=== PATIENT | female | born 1975 | race Caucasian/White ===

== ENCOUNTER → 2016-10-02 | Outpatient (CLI) | payer BC ==
--- NOTE | 2016-10-03 07:39 | CONS ---
DATE OF CONSULTATION: 10/02/2016 CONSULTATION/NEW PATIENT EVALUATION 41-year-old lady who has been evaluated in the [facility] for problem is sleeping at night and significant sleepiness during the day. [place] Sleepiness Scale is in extremely high range at 19. There was an episode of when she fall asleep during conversation. HISTORY OF PRESENT ILLNESS/SLEEP-WAKE EVALUATION: Her usual sleep schedule from around 11:00 p.m. to midnight time until 6:00 a.m. and on weekends from 11 to 12 midnight until 6:00 or 7:00 a.m. She does have problems with falling sleep. She may wake up from sleep with difficulties to initiate sleep again. She wakes up with dry mouth. She denied any history of snoring, but she has episodes of heavy breathing when she breathes through her mouth during the sleep. In the morning she wakes up tired, falling asleep during the day, worries about her sleep, has problems with memory, concentration, irritability, depression. [place] Sleepiness Scale is already mentioned above 19. Positive history of one episode of possible hypnagogic hallucinations. No history of cataplexy or sleep paralysis. PAST MEDICAL HISTORY: Positive for recent diagnosis of Parkinson's disease. MEDICATIONS: Sinemet 25 and 100 mg at 5 times a day, Requip 2 mg 4 times a day. Without medications she has significant tremor according to the patient. PAST SURGICAL HISTORY: None. SOCIAL HISTORY: Negative for smoking. Alcohol consumption occasional. REVIEW OF SYSTEMS: Some awakenings from sleepiness during the day, significant tremor without medications. No fevers. No double vision. No recent chest pain. No shortness of breath. No abdominal pain. No bleeding episodes. No blood in urine. No seizure episodes. FAMILY HISTORY: Heart problems, hyperlipidemia, sinus headache, cancer, acid reflux. PHYSICAL EXAMINATION: GENERAL: A 41-year-old lady without distress. VITAL SIGNS: BP 123/70, HR 84, RR 16. Height 5 feet 5 inches. Weight 165. BMI 27.4. Neck 13-1/2 inches in circumference. Temp is 97.6. Oxygen saturation at room air 100%. HEENT: PERRLA, EOMI. Evaluation of oropharynx showed extremely low position of soft palate. Slight restriction of nasal breathing. Retrognathia 2 to 3 mm. NECK: Supple. No JVD. Thyroid is not palpable. LUNGS: Clear to percussion and to auscultation. Good air exchange. No wheezing or rhonchi. HEART: S1, S2 regular. No murmurs, gallops or rubs. ABDOMEN: Soft and nontender. Bowel sounds are present. No organomegaly appreciated. EXTREMITIES: No clubbing or cyanosis. AWNING SPREADER: Awake, alert, and oriented x3. Cranial nerves 2 to 7 intact. There is no fasciculation or atrophy noted. No focal deficits observed. IMPRESSION: 1. Significant excessive daytime sleepiness. [place] Sleepiness Scale increased to 19, positive history of episodes of hypnagogic hallucinations, differential diagnosis include hypersomnia and narcolepsy without cataplexy. 2. Small oropharyngeal air space, breathing during this sleep through the mouth, awakenings with dry mouth, possible obstructive sleep apnea-hypopnea syndrome, retrognathia rare, although the patient does not have any history of snoring. 3. Recently diagnosed with Parkinson's disease, has significant tremor before she was started on dopaminergic agonists. No abnormalities during neurological exam today while she is on treatment with dopamine agonists. 4. Irregular menstrual periods for 2 to 3 days only. PLAN: 1. Polysomnography for evaluation of the patient's sleep during the night with following multiple sleep latency test for objective evaluation for symptoms of excessive daytime sleepiness and rule out hypersomnia. 2. Sleep hygiene with regular time in bed for 8 hours. 3. No driving if feeling any sleepiness. 4. Psychological techniques for treatment of insomnia should include stimulus control. 5. Paradoxical intention, worry time. 6. Continue to sleep on the side. Thank you very much for referring this patient for consultation. Sincerely, Deng Collazo MD, PhD, FAASM. Diplomat of [place] [employer], Sleep Medicine Board by [place] [place] [employer] Rougher Operator of [facility] [place]
== END | disposition home or self-care (01) ==
LOC: SLEEP 16:42
PROVIDERS: ATTEND Internal Medicine
DX: G20 Parkinson's disease (principal); G47.9 Sleep disorder, unspecified
CPT/HCPCS: 99211

== ENCOUNTER → 2017-01-01 | Outpatient (CLI) | payer BC ==
--- NOTE | 2017-01-01 13:03 | PN ---
PROGRESS NOTE DATE OF SERVICE: 01/01/2017 A 41-year-old lady who had been followed in Sleep Center to discuss results of polysomnogram and multiple sleep latency test and plan of the treatment. I discussed results of the sleep studies with patient in details. Polysomnogram did not show any significant abnormality with respiration. Normal oxygenation during the sleep. Five periods of REM have been documented. Multiple sleep latency test on the following day consisted from 5 naps and showed mean sleep latency 6.7 minutes, which may indicate possible narcolepsy. No sleep onset REM periods although have been documented during the naps. Patient continued to have symptoms of significant excessive daytime sleepiness, especially when she drives. Recently, she has been treated for possible Parkinson's disease and 2 incidents. She feels better with the treatment and her most problem related to movements in her legs. MEDICATIONS: Requip, Sinemet. PHYSICAL EXAM: A lady without distress. BP 107/74, HR 82, RR 16, height 5, 5, weight 165, BMI 27.4, temp 98.5, oxygen saturation on room air 99%. OROPHARYNX: Moderately low position of soft palate. Neck Supple, no JVD. Thyroid is not palpable. LUNGS Clear to percussion and to auscultation. Good air exchange. No wheezing or rhonchi. HEART S1, S2 regular. No murmurs, gallops, or rubs. ABDOMEN Soft and nontender. Bowel sounds are present. No organomegaly appreciated. EXTREMITIES No clubbing or cyanosis. 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 Cranial nerves 2 to 7 intact. There is no fasciculation or atrophy. noted. No focal deficits observed. IMPRESSION: 1. No significant respiratory abnormalities during the polysomnogram. No any significant periodic limb movements during the sleep study. 2. Multiple sleep latency tests showed short sleep latency. Patient has this extremely high [place] Sleepiness Scale of 19. She continued to feel significant sleepiness including sleepiness while driving the car. 3. Recently had been diagnosed with Parkinson's disease on treatment with dopamine agonists. 4. Recently irregular menstrual periods. PLAN: 1. I will start patient on treatment with modafinil for excessive daytime sleepiness with adjustment of the adjusting dose slowly to getting clinical response. 2. No driving if feeling any sleepiness. 3. Sleep hygiene with regular time in bed for at least 8 hours. 4. Daytime naps permitted. Thank you very much for allowing me to participate in the management of your patient. Sincerely, Deng Collazo MD, PhD, FAASM Diplomat of [place] [employer] [place] [employer] Roof Bolter of [facility] [place] ABIGAIL / WAI: [id number] /
== END ==
LOC: SLEEP 11:44
PROVIDERS: ATTEND Internal Medicine
DX: G47.10 Hypersomnia, unspecified (principal); G20 Parkinson's disease; Z79.899 Other long term (current) drug therapy

== ENCOUNTER 2018-07-11 20:43 | Emergency (ER) | payer BC ==
--- NOTE | 2018-07-11 21:14 | ED ---
Syncope HPI - General Chief Complaint: Syncope Stated Complaint: Lightheaded Time Seen by Provider: 07/11/18 20:49 Source: EMS Mode of arrival: EMS Limitations: no limitations - History of Present Illness Initial Comments: This patient is a 43-year-old woman with history of Parkinson's disease, who presents to be evaluated after she had a syncopal episode. The patient recalls sitting at her kitchen table with family present, and then the next thing she was able to recall she was waking up in an ambulance being brought here. The patient's was present and states that while the patient was seated at the table she seemed to be passing out so he lowered her to the floor and then she was unconscious for approximately 30 or so seconds. He states that EMS was activated, and that the patient over the next couple of minutes seemed to become more alert. She went from initially staring off without being very responsive to more like her usual self over the course of probably 5-10 minutes. The patient had not had much sleep the prior evening, only sleeping 2-3 hours but they state that that is not unusual for her. She also did have a marijuana edible to help with her tremor related to the Parkinson's disease. She had eaten at approximately an hour before this episode. She states she has had this passing out once previously. Patient denied any chest pain, dyspnea, diaphoresis, nausea or vomiting. There was no loss of continence. There was no tonic-clonic movement noted. MD Complaint: loss of consciousness Onset/Timin -: hour(s) Prodromal Symptoms: none Description of Event: post-event confusion -: second(s) Witnessed: yes - by bystander Injuries Sustained Associated with Event: None Current Symptoms: back to baseline History: other (Parkinson's disease) Context: at rest Treatments Prior to Arrival: none - Related Data Home Medications Medication Instructions Recorded Confirmed Apkoyn (0.4mg) 0.4 mg SQ DIRECTED 07/11/18 07/11/18 Carbidopa-Levodopa 25-100 mg 1 tab PO Q2H 07/11/18 07/11/18 [Sinemet 25-100 mg] rOPINIRole HCL [Requip] 2 mg PO QID 07/11/18 07/11/18 Allergies Allergy/AdvReac Type Severity Reaction Status Date / Time No Known Allergies Allergy Verified 07/11/18 21:15 Review of Systems ROS Statement: Those systems with pertinent positive or pertinent negative responses have been documented in the HPI. ROS Other: All systems not noted in ROS Statement are negative. Constitutional: Denies: fever, chills, weakness Eyes: Denies: vision change ENT: Denies: ear pain, hearing loss Respiratory: Denies: cough, dyspnea Cardiovascular: Reports: syncope. Denies: chest pain, palpitations, orthopnea, edema Gastrointestinal: Denies: abdominal pain, nausea, vomiting, diarrhea, melena, hematochezia Genitourinary: Denies: dysuria, hematuria Musculoskeletal: Denies: back pain Skin: Denies: rash Neurological: Denies: headache, weakness, numbness Past Medical History Additional Past Medical History / Comment(s): parkinson History of Any Multi-Drug Resistant Organisms: None Reported Past Psychological History: No Psychological Hx Reported Smoking Status: Never smoker Past Alcohol Use History: Daily Past Drug Use History: Marijuana General Exam Limitations: no limitations General appearance: alert, in no apparent distress Head exam: Present: atraumatic, normocephalic Eye exam: Present: normal appearance, PERRL, EOMI. Absent: scleral icterus, conjunctival injection ENT exam: Present: normal oropharynx Neck exam: Present: normal inspection Respiratory exam: Present: normal lung sounds bilaterally. Absent: respiratory distress, wheezes, rales, rhonchi, stridor Cardiovascular Exam: Present: regular rate, normal rhythm, normal heart sounds. Absent: systolic murmur, diastolic murmur, rubs, gallop GI/Abdominal exam: Present: soft. Absent: distended, tenderness, guarding, rebound, mass Extremities exam: Present: normal inspection, normal capillary refill. Absent: pedal edema, calf tenderness Neurological exam: Present: alert, oriented X3, CN II-XII intact, other (Mild tremor). Absent: motor sensory deficit Skin exam: Present: warm, dry, intact, normal color. Absent: rash Course Vital Signs 07/11/18 07/11/18 07/11/18 20:51 21:28 22:00 Temperature 98.4 F Pulse Rate 90 95 Pulse Rate [ 96 Pulse Oximetery ] Respiratory 18 18 18 Rate Blood Pressure 142/94 132/85 Blood Pressure 128/88 [Right Arm Sitting] Blood Pressure 139/100 [Right Arm Standing] Blood Pressure 126/82 [Right Arm Supine] O2 Sat by Pulse 100 100 98 Oximetry EKG Findings - EKG Results: EKG: interpreted by ERMD, sinus rhythm (Rate 91 bpm), normal axis, normal QRS - Blocks, Bluebell, Hypertrophy, ST Abn: Repolarization changes or abnormalities: nonspecific abnormality, ST segment, and/or T wave Medical Decision Making - Lab Data Result diagrams: 07/11/18 21:14 07/11/18 21:35 Lab Results 07/11/18 07/11/18 Range/Units 21:14 21:35 WBC 7.6 (3.8-10.6) k/uL RBC 4.37 (3.80-5.40) m/uL Hgb 12.8 (11.4-16.0) gm/dL Hct 38.8 (34.0-46.0) % MCV 88.8 (80.0-100.0) fL MCH 29.2 (25.0-35.0) pg MCHC 32.8 (31.0-37.0) g/dL RDW 13.2 (11.5-15.5) % Plt Count 232 (150-450) k/uL Neutrophils % 73 % Lymphocytes % 18 % Monocytes % 4 % Eosinophils % 3 % Basophils % 0 % Neutrophils # 5.6 (1.3-7.7) k/uL Lymphocytes # 1.4 (1.0-4.8) k/uL Monocytes # 0.3 (0-1.0) k/uL Eosinophils # 0.2 (0-0.7) k/uL Basophils # 0.0 (0-0.2) k/uL Sodium 139 (137-145) mmol/L Potassium 4.4 (3.5-5.1) mmol/L Chloride 104 (98-107) mmol/L Carbon Dioxide 25 (22-30) mmol/L Anion Gap 10 mmol/L BUN 15 (7-17) mg/dL Creatinine 0.67 (0.52-1.04) mg/dL Est GFR (CKD-EPI)AfAm >90 (>60 ml/min/1.73 sqM) Est GFR (CKD-EPI)NonAf >90 (>60 ml/min/1.73 sqM) Glucose 93 (74-99) mg/dL Calcium 9.8 (8.4-10.2) mg/dL Disposition Clinical Impression: Vasovagal syncope Disposition: HOME SELF-CARE Condition: Good Is patient prescribed a controlled substance at d/c from ED?: No Referrals: Ja Delcid MD [Primary Care Provider] - 1-2 days
[2018-07-11 21:22] LABS: Basophils % (A) 0 %; Eosinophils # (A) 0.2 k/uL (0-0.7); Eosinophils % (A) 3 %; HCT 38.8 % (34.0-46.0); HGB 12.8 gm/dL (11.4-16.0); Lymphocytes # (A) 1.4 k/uL (1.0-4.8); Lymphocytes % (A) 18 %; MCH 29.2 pg (25.0-35.0); MCHC 32.8 g/dL (31.0-37.0); MCV 88.8 fL (80.0-100.0); Monocytes # (A) 0.3 k/uL (0-1.0); Monocytes % (A) 4 %; Neutrophils # (A) 5.6 k/uL (1.3-7.7); Neutrophils % (A) 73 %; Platelet Count 232 k/uL (150-450); RBC 4.37 m/uL (3.80-5.40); RDW 13.2 % (11.5-15.5); WBC 7.6 k/uL (3.8-10.6)
[2018-07-11 21:58] LABS: Anion Gap 10 mmol/L; Blood Urea Nitrogen 15 mg/dL (7-17); Calcium 9.8 mg/dL (8.4-10.2); Carbon Dioxide 25 mmol/L (22-30); Chloride 104 mmol/L (98-107); Glucose 93 mg/dL (74-99); Potassium 4.4 mmol/L (3.5-5.1); Sodium 139 mmol/L (137-145)
[2018-07-11 23:54] VITALS: BP 116/77; PULSE 77; RESP 17; TEMP 98
== END 2018-07-12 00:02 | disposition home or self-care (01) ==
LOC: EC 20:43
DX: R55 Syncope and collapse (principal); R41.0 Disorientation, unspecified; G20 Parkinson's disease; Z79.899 Other long term (current) drug therapy
CPT/HCPCS: 36415; 80048; 81025; 85025; 93005; 99284

== ENCOUNTER → 2021-10-07 | Outpatient (CLI) | payer BC ==
--- NOTE | 2021-10-07 10:34 | XR ---
EXAMINATION TYPE: XR chest 2V DATE OF EXAM: 10/07/2021 COMPARISON: NONE TECHNIQUE: PA and lateral views submitted. HISTORY: Shortness of breath FINDINGS: The lungs are clear and there is no pneumothorax, pleural effusion, or focal pneumonia. Heart size is normal. Mild hyperinflation correlate for COPD or asthma. No overt failure. IMPRESSION: 1. No acute process.
[2021-10-07 18:43] LABS: Basophils # (A) 0.03 X 10*3/uL (0.00-0.10); Basophils % (A) 0.5 %; Eosinophils # (A) 0.14 X 10*3/uL (0.04-0.35); Eosinophils % (A) 2.5 %; HCT 39.1 % (37.2-46.3); HGB 12.3 g/dL (12.0-15.0); Immature Grans, Automated 0.4 %; Lymphocytes # (A) 1.64 X 10*3/uL (0.90-5.00); MCH 29.4 pg (27.0-32.0); MCHC 31.5 g/dL (32.0-37.0); MCV 93.5 fL (80.0-97.0); Mean Platelet Volume 10.2 fL (9.5-12.2); Monocytes # (A) 0.36 X 10*3/uL (0.20-1.00); Monocytes % (A) 6.4 %; NRBC Per 100 WBC 0 /100 WBCS (0.0-0.0); Neutrophils # (A) 3.46 X 10*3/uL (1.80-7.70); Neutrophils % (A) 61.2 %; Platelet Count 269 X 10*3/uL (140-440); RBC 4.18 X 10*6/uL (4.10-5.20); WBC 5.65 X 10*3/uL (4.50-10.00)
[2021-10-07 18:57] LABS: ALT 6 U/L (8-44); AST 20 U/L (13-35); African American GFR (CKD) 122.7 (60.0-200.0); Albumin 4.5 g/dL (3.8-4.9); Albumin/Globulin Ratio 2.12 (1.60-3.17); Alkaline Phosphatase 106 U/L (41-126); BUN/Creat Ratio 18.96 Ratio (12.00-20.00); Blood Urea Nitrogen 13.1 mg/dL (9.0-27.0); Calcium 9.5 mg/dL (8.7-10.3); Carbon Dioxide 24.4 mmol/L (20.0-27.5); Chloride 103 mmol/L (96-109); Globulin 2.1 g/dL (1.6-3.3); Glucose 92 mg/dL (70-110); Non-African American GFR(CKD) 105.8 (60.0-200.0); Potassium 4.6 mmol/L (3.5-5.5); Sodium 140 mmol/L (135-145); Total Protein 6.6 g/dL (6.2-8.2)
== END | disposition home or self-care (01) ==
LOC: RADXRMAIN 10:16
PROVIDERS: ATTEND Pediatrics
DX: R06.02 Shortness of breath (principal)
CPT/HCPCS: 71046; 80053; 84443; 85025

== ENCOUNTER → 2021-11-19 | Outpatient (CLI) | payer BC ==
--- NOTE | 2021-11-19 17:38 | CA ---
Transthoracic Echo Report Name: Paulette Chahal Age: 46 Gender: F : 1975 Exam Date: 11/19/2021 13:09 Exam Location: [facility] Ht (in): 66 Wt (lb): 185 Ordering Physician: Ja Delcid MD Attending/Referring Phys: Ebony Gan PAC Rn Gastroenterology Kinsey Parsons RDCS Procedure CPT: Indications: R06.02 SHORTNESS OF BREATH Cardiac Hx: Technical Quality: Fair Contrast 1: Total Dose (mL): Contrast 2: Total Dose (mL): MEASUREMENTS (Male / Female) Normal Values 2D ECHO LV Diastolic Diameter PLAX 3.8 cm 4.2 - 5.9 / 3.9 - 5.3 cm LV Systolic Diameter PLAX 2.7 cm IVS Diastolic Thickness 1.1 cm 0.6 - 1.0 / 0.6 - 0.9 cm LVPW Diastolic Thickness 0.9 cm 0.6 - 1.0 / 0.6 - 0.9 cm LV Relative Wall Thickness 0.5 RV Internal Dim ED PLAX 3.3 cm LA Volume 27.0 cm??? 18 - 58 / 22 - 52 cm??? M-MODE Aortic Root Diameter MM 2.7 cm LA Systolic Diameter MM 2.9 cm LA Ao Ratio MM 1.0 AV Cusp Separation MM 1.8 cm DOPPLER AV Peak Velocity 125.6 cm/s AV Peak Gradient 6.3 mmHg LVOT Peak Velocity 97.9 cm/s LVOT Peak Gradient 3.8 mmHg MV Area PHT 4.1 cm??? Mitral E Point Velocity 85.8 cm/s Mitral A Point Velocity 44.3 cm/s Mitral E to A Ratio 1.9 MV Deceleration Time 187.1 ms MV E' Velocity 14.1 cm/s Mitral E to MV E' Ratio 6.1 TR Peak Velocity 223.6 cm/s TR Peak Gradient 20.0 mmHg Right Ventricular Systolic Press 25.0 mmHg FINDINGS Left Ventricle Mildly increased left ventricular wall thickness. Normal left ventricular systolic function with no obvious regional wall motion abnormalities. Left ventricular ejection fraction is estimated at 55 %. Right Ventricle Normal right ventricular size and function. Right ventricular systolic pressure within normal limits. Right Atrium Normal right atrial size. Left Atrium Normal left atrial size. Mitral Valve Structurally normal mitral valve. Trace mitral regurgitation. Aortic Valve No aortic valve stenosis or regurgitation. Tricuspid Valve Mild tricuspid regurgitation. Pulmonic Valve Structurally normal pulmonic valve. Trace pulmonic regurgitation. Pericardium No pericardial effusion. Aorta Normal size aortic root and proximal ascending aorta. CONCLUSIONS Normal LV systolic function Previewed by: Dr. Edil Noel MD (Electronically Signed) Final Date: 19 November 2021 17:38
== END | disposition home or self-care (01) ==
LOC: RADECHMAIN 13:06
PROVIDERS: ATTEND Pediatrics
DX: I08.1 Rheumatic disorders of both mitral and tricuspid valves (principal)
CPT/HCPCS: 93306

== ENCOUNTER → 2022-05-15 | Outpatient (CLI) | payer BC ==
--- NOTE | 2022-05-16 08:24 | MM ---
Reason for Exam: Screening (asymptomatic). Last mammogram was performed 7 year(s) and 9 month(s) ago. Patient History: Menarche at age 13. First Full-Term at age 21. Last menstrual period: 05/12/2022 Risk Values: Diane 5 year model risk: 0.6%. NCI Lifetime model risk: 7.7%. Prior Study Comparison: 08/21/2014 Bilateral Screening Mammogram, [facility]. Tissue Density: There are scattered fibroglandular densities. Findings: Analyzed By CAD. There is no suspicious group of microcalcifications or new suspicious mass in either breast. Overall Assessment: Negative, BI-RAD 1 Management: Screening Mammogram of both breasts in 1 year. A clinical breast exam by your physician is recommended on an annual basis and results should be correlated with mammographic findings. Electronically signed and approved by: Jacek Louise M.D. Radiologis
== END | disposition home or self-care (01) ==
LOC: RADMAMWWP 09:56
PROVIDERS: ATTEND Pediatrics
DX: Z12.31 Encounter for screening mammogram for malignant neoplasm of breast (principal)
CPT/HCPCS: 77063; 77067

== ENCOUNTER → 2022-06-27 | Outpatient (CLI) | payer BC ==
[2022-06-27 14:33] LABS: Appearance,Urine Clear (Clear); Bilirubin,Urine Negative (Negative); Blood,Urine Negative (Negative); Budding Yeast,Urine Rare /hpf; Color,Urine Yellow; Glucose,Urine (UA) Negative (Negative); Ketones,Urine 1+ (Negative); Leukocyte Esterase,Urine Small (Negative); Mucus,Urine Few /hpf; Nitrite,Urine Negative (Negative); PH, Urine 6.5 (5.0-8.0); Protein,Urine Trace (Negative); RBC,Urine 5 /hpf (0-5); Specific Gravity,Urine 1.026 (1.001-1.035); Squamous Epithelial Cell,Urine 5 /hpf (0-4); WBC,Urine 1 /hpf (0-5)
[2022-06-27 18:39] LABS: HCT 41.6 % (37.2-46.3); HGB 13.4 g/dL (12.0-15.0); MCH 29.9 pg (27.0-32.0); MCHC 32.2 g/dL (32.0-37.0); MCV 92.9 fL (80.0-97.0); Mean Platelet Volume 10.4 fL (9.5-12.2); NRBC Per 100 WBC 0 /100 WBCS (0.0-0.0); Platelet Count 253 X 10*3/uL (140-440); RBC 4.48 X 10*6/uL (4.10-5.20); RDW 13.5 % (11.5-14.5); WBC 6.68 X 10*3/uL (4.50-10.00)
[2022-06-27 19:14] LABS: African American GFR (CKD) 121.3 (60.0-200.0); Albumin 4.5 g/dL (3.8-4.9); Albumin/Globulin Ratio 2.05 (1.60-3.17); Anion Gap 10.8 mmol/L (10.00-18.00); BUN/Creat Ratio 18.14 Ratio (12.00-20.00); Blood Urea Nitrogen 12.7 mg/dL (9.0-27.0); Calcium 9.4 mg/dL (8.7-10.3); Carbon Dioxide 23.2 mmol/L (20.0-27.5); Globulin 2.2 g/dL (1.6-3.3); Non-African American GFR(CKD) 104.6 (60.0-200.0); Potassium 4.9 mmol/L (3.5-5.5); Total Bilirubin 0.7 mg/dL (0.30-1.20); Total Protein 6.7 g/dL (6.2-8.2)
== END | disposition home or self-care (01) ==
LOC: LABWHC1 10:47
PROVIDERS: ATTEND Neurological Surgery
DX: Z01.818 Encounter for other preprocedural examination (principal); R94.31 Abnormal electrocardiogram [ECG] [EKG]
CPT/HCPCS: 36415; 80053; 81001; 85027; 93005

== ENCOUNTER 2022-07-28 12:43 | Emergency (ER) | payer BC ==
[2022-07-28 13:09] VITALS: TEMP 98.2
--- NOTE | 2022-07-28 13:46 | ED ---
General Adult HPI - General Chief complaint: Fall Stated complaint: post op - fall Time Seen by Provider: 07/28/22 13:20 Source: patient, family, RN notes reviewed Mode of arrival: ambulatory Limitations: no limitations - History of Present Illness Initial comments: Patient is a pleasant 47-year-old female presenting to the emergency department with concerns with a syncopal episode followed by falling and striking her head. Patient does have Parkinson's. Patient did have stimulator placed just a few days ago in her brain. This is not been activated yet. Patient just went home. Patient did have an episode this morning where she did feel nauseous and did have a syncopal episode. This was witnessed family. Incident lasted 30-60 seconds. Patient was acting fine following this. Patient has had 5 or 6 similar episodes to this in the past and is not overly concerned about it. Following this patient was walking and did have some mild problems with balance related to her Parkinson's. Patient states this is not uncommon however she did fall and strike her head on the handrail. No loss of consciousness. No significant headache. Patient is concerned because of her recent procedure and wanted to make sure that there was not abnormality. - Related Data Home Medications Medication Instructions Recorded Confirmed Carbidopa-Levodopa 25-100 mg 2 tab PO DIRECTED MDD 8 doses 07/11/18 07/28/22 [Sinemet 25-100 mg] rOPINIRole HCL [Requip] 4 mg PO QID 07/11/18 07/28/22 Levodopa [Inbrija] 84 mg INHALATION RT-QID PRN 07/28/22 07/28/22 Sertraline [Zoloft] 100 mg PO DAILY 07/28/22 07/28/22 amantadine HCL [Amantadine] 100 mg PO BID 07/28/22 07/28/22 clonazePAM [KlonoPIN] 0.5 mg PO TID 07/28/22 07/28/22 Allergies Allergy/AdvReac Type Severity Reaction Status Date / Time No Known Allergies Allergy Verified 07/28/22 15:07 Review of Systems ROS Statement: Those systems with pertinent positive or pertinent negative responses have been documented in the HPI. ROS Other: All systems not noted in ROS Statement are negative. Constitutional: Denies: fever Eyes: Denies: eye pain ENT: Denies: ear pain Respiratory: Denies: cough Cardiovascular: Denies: chest pain Endocrine: Denies: fatigue Gastrointestinal: Denies: abdominal pain Genitourinary: Denies: dysuria Musculoskeletal: Denies: back pain Skin: Denies: rash Neurological: Reports: as per HPI Past Medical History Past Medical History: No Reported History Additional Past Medical History / Comment(s): parkinson History of Any Multi-Drug Resistant Organisms: None Reported Additional Past Surgical History / Comment(s): DBS STAGE 1 ON 07/22 Past Psychological History: No Psychological Hx Reported Smoking Status: Former smoker Past Alcohol Use History: Daily Past Drug Use History: Marijuana General Exam Limitations: no limitations General appearance: alert, in no apparent distress Head exam: Present: other (Postsurgical incision clean and dry and intact) Eye exam: Present: normal appearance, PERRL, EOMI ENT exam: Present: normal oropharynx Neck exam: Present: normal inspection. Absent: tenderness Respiratory exam: Present: normal lung sounds bilaterally Cardiovascular Exam: Present: regular rate, normal rhythm Expanded Peripheral pulses: 2+: Radial (R), Radial (L), Dorsalis Pedis (R), Dorsalis Pedis (L) GI/Abdominal exam: Present: soft. Absent: tenderness Extremities exam: Present: normal inspection. Absent: pedal edema, calf tenderness Neurological exam: Present: alert, oriented X3, CN II-XII intact. Absent: motor sensory deficit Expanded Neurological exam: Present: protecting the airway Speech: Present: fluid speech Cranial nerves: EOM's Intact: Normal Motor strength exam: RUE: 5, LUE: 5, RLE: 5, LLE: 5 Eye Response: (4) open spontaneously Motor Response: (6) obeys commands Verbal Response: (5) oriented Psychiatric exam: Present: normal affect, normal mood Skin exam: Present: normal color Course Vital Signs 07/28/22 07/28/22 13:04 14:47 Temperature 98.2 F Pulse Rate 70 74 Respiratory 18 16 Rate Blood Pressure 96/58 119/91 O2 Sat by Pulse 99 98 Oximetry EKG Findings - EKG Results: EKG: interpreted by ERMD (Frequent PVCs), sinus rhythm, normal axis, normal QRS, normal ST/T Medical Decision Making - Medical Decision Making Was pt. sent in by a medical professional or institution (, PA, PERIOPERATIVE ASSISTANT, urgent care, hospital, or longterm...) When possible be specific @ -Patient did talk to her doctor who did advise the come to emergency department for evaluation Did you speak to anyone other than the patient for history (EMS, parent, family, police, friend...)? What history was obtained from this source @ - is present and helps fright history including syncopal episode Did you review nursing and triage notes (agree or disagree)? Why? @ -I reviewed and agree with nursing and triage notes Were old charts reviewed (outside hosp., previous admission, EMS record, old EKG, old radiological studies, urgent care reports/EKG's, longterm records)? Report findings @ -No old charts were reviewed Differential Diagnosis (chest pain, altered mental status, abdominal pain women, abdominal pain men, vaginal bleeding, weakness, fever, dyspnea, syncope, headache, dizziness, GI bleed, back pain, seizure, CVA, palpatations, mental health)? @ -Differential Syncope: Valvular disease, hypertrophic cardiomyopathy, pulmonary embolism, tamponade, tachycardia, bradycardia, [place], hypovolemia, hemorrhage, dissection, anemia, intracranial hemorrhage, seizure, hypoglycemia, carbon monoxide poisoning, this is not meant to be an all-inclusive list. EKG interpreted by me (3pts min.). @ -As above X-rays interpreted by me (1pt min.). @ -Chest x-ray shows no acute process CT interpreted by me (1pt min.). @ -Reports reviewed U/S interpreted by me (1pt. min.). @ -None done What testing was considered but not performed or refused? (CT, X-rays, U/S, labs)? Why? @ -None What meds were considered but not given or refused? Why? @ -None Did you discuss the management of the patient with other professionals (professionals i.e. , PA, PERIOPERATIVE ASSISTANT, lab, RT, psych nurse, social worker delinquency prevention, clinical documentation improvement specialist, teacher, patient safety officer, case loader operator)? Give summary @ -No Was smoking cessation discussed for >3mins.? @ -No Was critical care preformed (if so, how long)? @ -No Were there social determinants of health that impacted care today? How? (Homelessness, low income, unemployed, alcoholism, drug addiction, transportation, low edu. Level, literacy, decrease access to med. care, fci, rehab)? @ -No Was there de-escalation of care discussed even if they declined (Discuss DNR or withdrawal of care, Hospice)? DNR status @ -No What co-morbidities impacted this encounter? (DM, HTN, Smoking, COPD, CAD, Cancer, CVA, ARF, Chemo, Hep., AIDS, mental health diagnosis, sleep apnea, morbid obesity)? @ -Patient had recent surgery for placement of intercranial stimulator device. Patient also has history of syncope Was patient admitted / discharged? Hospital course, mention meds given and route, prescriptions, significant lab abnormalities, going to OR and other pertinent info. @ -Patient reevaluated and symptom-free. Patient and are both comfortable with discharge home and will be discharged with recommended follow- up with primary care physician and surgeon. Undiagnosed new problem with uncertain prognosis? @ -No Drug Therapy requiring intensive monitoring for toxicity (Heparin, Nitro, Insulin, Cardizem)? @ -No Were any procedures done? @ -No Diagnosis/symptom? @ -Syncope, head contusion Acute, or Chronic, or Acute on Chronic? @ -Acute, acute Uncomplicated (without systemic symptoms) or Complicated (systemic symptoms)? @ -default Side effects of treatment? @ -No Exacerbation, Progression, or Severe Exacerbation? @ -No Poses a threat to life or bodily function? How? (Chest pain, [place], [place], pneumonia, PE, COPD, DKA, ARF, appy, cholecystitis, CVA, Diverticulitis, Homicidal, Suicidal, threat to staff... and all critical care pts) @ -No - Lab Data Result diagrams: 07/28/22 13:50 07/28/22 13:50 Lab Results 07/28/22 07/28/22 07/28/22 Range/Units 13:50 13:50 13:50 WBC 6.6 (3.8-10.6) k/uL RBC 4.13 (3.80-5.40) m/uL Hgb 12.6 (11.4-16.0) gm/dL Hct 37.3 (34.0-46.0) % MCV 90.5 (80.0-100.0) fL MCH 30.6 (25.0-35.0) pg MCHC 33.8 (31.0-37.0) g/dL RDW 13.2 (11.5-15.5) % Plt Count 295 (150-450) k/uL MPV 7.6 Neutrophils % 69 % Lymphocytes % 23 % Monocytes % 4 % Eosinophils % 2 % Basophils % 0 % Neutrophils # 4.5 (1.3-7.7) k/uL Lymphocytes # 1.5 (1.0-4.8) k/uL Monocytes # 0.3 (0-1.0) k/uL Eosinophils # 0.1 (0-0.7) k/uL Basophils # 0.0 (0-0.2) k/uL PT 10.1 (9.0-12.0) sec INR 0.9 (<1.2) APTT 22.3 (22.0-30.0) sec D-Dimer 1.27 H (<0.60) mg/L FEU Sodium 137 (137-145) mmol/L Potassium 4.5 (3.5-5.1) mmol/L Chloride 103 (98-107) mmol/L Carbon Dioxide 27 (22-30) mmol/L Anion Gap 7 mmol/L BUN 16 (7-17) mg/dL Creatinine 0.54 (0.52-1.04) mg/dL Est GFR (CKD-EPI)AfAm >90 (>60 ml/min/1.73 sqM) Est GFR (CKD-EPI)NonAf >90 (>60 ml/min/1.73 sqM) Glucose 92 (74-99) mg/dL Calcium 9.0 (8.4-10.2) mg/dL Magnesium 2.2 (1.6-2.3) mg/dL Total Bilirubin 0.7 (0.2-1.3) mg/dL AST 36 (14-36) U/L ALT 9 (4-34) U/L Alkaline Phosphatase 73 (38-126) U/L Troponin I (0.000-0.034) ng/mL Total Protein 7.0 (6.3-8.2) g/dL Albumin 4.2 (3.5-5.0) g/dL 07/28/22 Range/Units 13:50 WBC (3.8-10.6) k/uL RBC (3.80-5.40) m/uL Hgb (11.4-16.0) gm/dL Hct (34.0-46.0) % MCV (80.0-100.0) fL MCH (25.0-35.0) pg MCHC (31.0-37.0) g/dL RDW (11.5-15.5) % Plt Count (150-450) k/uL MPV Neutrophils % % Lymphocytes % % Monocytes % % Eosinophils % % Basophils % % Neutrophils # (1.3-7.7) k/uL Lymphocytes # (1.0-4.8) k/uL Monocytes # (0-1.0) k/uL Eosinophils # (0-0.7) k/uL Basophils # (0-0.2) k/uL PT (9.0-12.0) sec INR (<1.2) APTT (22.0-30.0) sec D-Dimer (<0.60) mg/L FEU Sodium (137-145) mmol/L Potassium (3.5-5.1) mmol/L Chloride (98-107) mmol/L Carbon Dioxide (22-30) mmol/L Anion Gap mmol/L BUN (7-17) mg/dL Creatinine (0.52-1.04) mg/dL Est GFR (CKD-EPI)AfAm (>60 ml/min/1.73 sqM) Est GFR (CKD-EPI)NonAf (>60 ml/min/1.73 sqM) Glucose (74-99) mg/dL Calcium (8.4-10.2) mg/dL Magnesium (1.6-2.3) mg/dL Total Bilirubin (0.2-1.3) mg/dL AST (14-36) U/L ALT (4-34) U/L Alkaline Phosphatase (38-126) U/L Troponin I <0.012 (0.000-0.034) ng/mL Total Protein (6.3-8.2) g/dL Albumin (3.5-5.0) g/dL Disposition Clinical Impression: Syncope, Head contusion Disposition: HOME SELF-CARE Condition: Stable Instructions (If sedation given, give patient instructions): Head Injury (ED), Syncope (ED) Additional Instructions: Please do follow-up with primary care physician in the next day or 2 for recheck. Please also follow-up with your neurosurgeon the next couple days for recheck. Bring computed tomography scan cd for them to review as well. Return for seizure, passing out, worsening or change in symptoms or any other concerns. Is patient prescribed a controlled substance at d/c from ED?: No Referrals: Ja Delcid MD [Primary Care Provider] - 1-2 days Time of Disposition: 15:39
[2022-07-28 14:16] LABS: Basophils % (A) 0 %; Eosinophils # (A) 0.1 k/uL (0-0.7); Eosinophils % (A) 2 %; HCT 37.3 % (34.0-46.0); HGB 12.6 gm/dL (11.4-16.0); Lymphocytes # (A) 1.5 k/uL (1.0-4.8); Lymphocytes % (A) 23 %; MCH 30.6 pg (25.0-35.0); MCHC 33.8 g/dL (31.0-37.0); MCV 90.5 fL (80.0-100.0); Mean Platelet Volume 7.6; Monocytes # (A) 0.3 k/uL (0-1.0); Monocytes % (A) 4 %; Neutrophils # (A) 4.5 k/uL (1.3-7.7); Neutrophils % (A) 69 %; Platelet Count 295 k/uL (150-450); RBC 4.13 m/uL (3.80-5.40); RDW 13.2 % (11.5-15.5); WBC 6.6 k/uL (3.8-10.6)
[2022-07-28 14:31] LABS: INR 0.9 (<1.2); Partial Thromboplastin Time 22.3 sec (22.0-30.0); Prothrombin Time 10.1 sec (9.0-12.0)
--- NOTE | 2022-07-28 14:36 | CT ---
EXAMINATION TYPE: CT brain wo con CT DLP: 1189.4 mGycm, Automated exposure control for dose reduction was used. DATE OF EXAM: 07/28/2022 2:27 PM COMPARISON: CT brain 08/11/2014 CLINICAL INDICATION:Female, 47 years old with history of syncope, PT FELL, HITTING HEAD. RECENT DBS F OR PARKINSONS TECHNIQUE: Brain: Multiple axial CT images of the brain were obtained without IV contrast. Coronal and sagittal reformats reviewed. FINDINGS: Brain: Extra-axial spaces: No abnormal extra-axial fluid collections. Ventricular system: Within normal limits Cerebral parenchyma: No acute intraparenchymal hemorrhage or mass effect. The nash-white junction is well differentiated. Stimulator leads terminate within the bilateral basal ganglia. Cerebellum: Unremarkable. Mass effect: No evidence of midline shift. Intracranial vasculature: unremarkable Soft tissues: Bilateral frontal scalp soft tissue gas and skin tulio related to recent surgery. Calvarium/osseous structures: No depressed skull fracture. Bilateral frontal bg holes. Paranasal sinuses and mastoid air cells: Clear Visualized orbits: Orbital contents are intact. IMPRESSION: 1. No acute intracranial process. 2. Postsurgical changes from deep brain stimulation.
--- NOTE | 2022-07-28 14:38 | XR ---
EXAMINATION TYPE: XR chest 2V DATE OF EXAM: 07/28/2022 COMPARISON: Chest x-ray October 07, 2021 HISTORY: Fall injury today with pain. Syncope. TECHNIQUE: Frontal and lateral views of the chest are obtained. FINDINGS: There is no suspicious new focal air space opacity, pleural effusion, or pneumothorax seen . The cardiac silhouette size is stable and within normal limits. The osseous structures are intac t. IMPRESSION: No acute process. No significant change from prior.
[2022-07-28 14:41] LABS: ALT 9 U/L (4-34); AST 36 U/L (14-36); African American GFR (CKD) >90 (>60 ml/min/1.73 sqM); Albumin 4.2 g/dL (3.5-5.0); Alkaline Phosphatase 73 U/L (38-126); Anion Gap 7 mmol/L; Blood Urea Nitrogen 16 mg/dL (7-17); Carbon Dioxide 27 mmol/L (22-30); Chloride 103 mmol/L (98-107); Glucose 92 mg/dL (74-99); Magnesium 2.2 mg/dL (1.6-2.3); Non-African American GFR(CKD) >90 (>60 ml/min/1.73 sqM); Sodium 137 mmol/L (137-145); Total Bilirubin 0.7 mg/dL (0.2-1.3)
[2022-07-28 14:48] VITALS: RESP 16
[2022-07-28 14:51] LABS: Potassium 4.5 mmol/L (3.5-5.1)
--- NOTE | 2022-07-28 15:29 | CT ---
EXAMINATION TYPE: CT angio chest CT DLP: 261.4 mGycm, Automated exposure control for dose reduction was used. DATE OF EXAM: 07/28/2022 3:18 PM COMPARISON: Chest radiograph from same day. CLINICAL INDICATION:Female, 47 years old with history of syncope; Syncope TECHNIQUE/CONTRAST: CTA scan of the thorax is performed with IV Contrast, patient injected with 100 mL of Isovue 370, pul monary embolism protocol. MIP images are created and reviewed these [facility] FINDINGS: Pulmonary Artery: There is no evidence for a filling defect within the pulmonary vasculature to sugge st acute pulmonary embolism. The pulmonary artery is of normal size. Lungs/Pleura: No evidence of focal consolidation, pleural effusion or pneumothorax. Airway: Large airways are patent. Heart: Heart is within normal limits for size. Vasculature: No evidence of aortic aneurysm. Mediastinum: No gross evidence of adenopathy. Musculoskeletal: No acute osseous abnormalities Soft Tissues: Unremarkable. Lower neck: No significant findings. Upper Abdomen: No significant findings. IMPRESSION: No evidence of pulmonary embolism.
[2022-07-28 16:07] VITALS: BP 117/82; PULSE 88
== END 2022-07-28 16:09 | disposition home or self-care (01) ==
LOC: EC 12:43
DX: S00.83XA Contusion of other part of head, initial encounter (principal); R55 Syncope and collapse; G20 Parkinson's disease; F12.90 Cannabis use, unspecified, uncomplicated; Z87.891 Personal history of nicotine dependence; Z79.899 Other long term (current) drug therapy; W18.39XA Other fall on same level, initial encounter; Y92.009 Unspecified place in unspecified non-institutional (private) residence as the place of occurrence of the external cause
CPT/HCPCS: 36415; 70450; 71046; 71275; 80053; 83735; 84484; 85025; 85379; 85610; 85730; 93005; 99285

== ENCOUNTER → 2023-10-30 | Outpatient (CLI) | payer MEDICARE, BC ==
--- NOTE | 2023-11-01 15:42 | MM ---
Reason for Exam: Screening (asymptomatic). Last mammogram was performed 1 year(s) and 5 month(s) ago. Patient History: Menarche at age 13. First Full-Term at age 21. Patient has history of breast feeding. Risk Values: Diane 5 year model risk: 0.7%. NCI Lifetime model risk: 7.6%. Prior Study Comparison: 08/21/2014 Bilateral Screening Mammogram, [facility]. 05/15/2022 Bilateral MG 3D screening mammo w/cad, [facility]. Tissue Density: The breasts are almost entirely fatty. Findings: Analyzed By CAD. The pattern is symmetrical. No significant interval change No suspicious groups of microcalcifications, spiculated or lobular masses, architectural distortion or other secondary signs of malignancy are mammographically apparent. Overall Assessment: Negative, BI-RAD 1 Management: Screening Mammogram of both breasts in 1 year. A negative mammogram report should not preclude additional follow up of suspicious palpable abnormalities. Patient should continue monthly self breast exam. A clinical breast exam by your physician is recommended on an annual basis and results should be correlated with mammographic findings. Note on Diane scores and lifetime risk: 1. A Diane score greater than 3% is considered moderate risk. If this is the case, consider specialist referral to assess eligibility for a risk reducing agent. 2. If overall lifetime risk for the development of breast cancer is 20% or higher, the patient may qualify for future screening with alternating mammogram and breast MRI. Electronically signed and approved by: Larry Morris D.O. Radiologis
== END | disposition home or self-care (01) ==
LOC: RADMAMWWP 08:18
PROVIDERS: ATTEND Pediatrics
DX: Z12.31 Encounter for screening mammogram for malignant neoplasm of breast (principal); R92.313 Mammographic fatty tissue density, bilateral breasts
CPT/HCPCS: 77063; 77067